=== PATIENT | male | born 1950 | race Caucasian/White ===

== ENCOUNTER → 2024-04-30 07:47 | Outpatient (REF) | payer BC, SELFPAY | LOC: DHVS 07:47 | PROVIDERS: ATTENDING PHYSICIAN Surgery Vascular Surgery; FAMILY PHYSICIAN Student in an Organized Health Care Education/Training Program | DX: I65.23 Occlusion and stenosis of bilateral carotid arteries (principal) | CPT/HCPCS: 93880 ==